=== PATIENT | male | born 1970 | race Caucasian/White ===

== ENCOUNTER → 2022-05-07 14:21 | Outpatient (CLI) | payer OTHER, SELFPAY ==
[2022-05-07 19:48] LABS: Alanine Aminotransferase 74 IU/L (<50); Albumin 4.3 g/dL (3.5-5.0); Albumin Globulin Ratio 1.3 (1.0-2.8); Alkaline Phosphatase 59 U/L (38-126); Aspartate Aminotransferase 59 IU/L (17-59); BUN Creatinine Ratio 14.4 (6-22); Bilirubin Total 1.5 mg/dL (0.2-1.3); Blood Urea Nitrogen 16 mg/dL (9-20); Calcium 9.2 mg/dL (8.4-10.2); Carbon Dioxide 30 mmol/L (22-32); Chloride 100 mmol/L (98-107); Estimated Glomerular Filt Rate > 60 mL/min (>60); Globulin 3.2 g/dL (1.7-4.1); Glucose 96 mg/dL (70-100); HEMOLYSIS < 15 (0-50); Potassium 4.3 mmol/L (3.4-5.1); Sodium 139 mmol/L (137-145); Total Protein 7.5 g/dL (6.3-8.2)
[2022-05-07 20:12] LABS: TSH w/ Reflex to FT4 2.77 uIU/mL (0.47-4.68)
[2022-05-07 20:13] LABS: Prostate Specific Antigen Scrn 0.221 ng/mL (0.1-4.0)
== END ==
PROVIDERS: PCP Family Medicine; Visit Provider Family Medicine
DX: Z12.5 Encounter for screening for malignant neoplasm of prostate (principal); E04.1 Nontoxic single thyroid nodule
CPT/HCPCS: 80053; 84443; G0103

== ENCOUNTER 2023-04-17 09:12 | Day surgery (SDC) | payer OTHER, SELFPAY ==
[2023-04-17] MEDS: LACTATED RINGERS 1,000 ML 42 ML IV (09:39)
[2023-04-17 09:43] VITALS: BP 128/72; PULSE 78; RESP 16; TEMP 36.5; O2SAT 97; BMI 23.7
--- NOTE | 2023-04-17 10:28 | P.HP_ITS ---
History of Present Illness History of Present Illness Date Patient Seen: 04/17/23 Time Patient Seen: 10:28 Chief complaint: [facility] Narrative: Marcus is a 52-year-old man who is here for colonoscopy. His last 1 was about 10 years ago. His grandfather had colon cancer. He has occasional rectal bleeding after a hard bowel [facility] Medical History (Updated 04/17/23 @ 10:29 by Miguel Wild MD) Abnormal liver function tests Chronic retention of urine Encounter for occupational therapy Family history of colon cancer Foot pain (~2020) Intermittent self-catheterization of bladder Internal hemorrhoids (~2012) Lower urinary tract symptoms Thyroid nodule (~2021) Urinary obstruction Surgical History (Updated 10/31/22 @ 13:39 by Bartolo Viveros MD) Anesthesia History of back surgery History of prostate surgery Family History Father History of kidney cancer Grandfather History of heart attack History of heart disease Grandfather Colon cancer Mother Cancer Social History marital status: number of children: 0 household members: none Smoking Status: Never smoker alcohol intake: never caffeine: Yes Type(s) of exercise: other frequency: daily Meds Home Medications and Allergies Allergies Allergy/AdvReac Type Severity Reaction Status Date / Time Penicillins Allergy Unknown Swelling Verified 04/17/23 09:41 Exam Vital Signs (past 8 hours): - 04/17/23 09:43 Temperature 97.7 F Pulse Rate 78 Respiratory Rate 16 Blood Pressure 128/72 Pulse Oximetry 97 Oxygen Delivery Method Room Air Oxygen Delivery Method Room Air Const General: healthy appearing Assessment & Plan Assessment and plan (1) Colon cancer screening: Status: Acute Plan We reviewed the risks and benefits of colonoscopy for colon cancer screening and he would like to proceed.
--- NOTE | 2023-04-17 11:22 | PM.OP.COLON ---
Operative Date/Time/Diagnoses Date of procedure: 04/17/23 Time of procedure: 11:22 Pre-op diagnosis: Colon cancer screening Post-op diagnosis: same Procedure & Clinicians Study performed: Colonoscopy Same procedure as scheduled: Yes Surgeon: Miguel Wild Procedure Notes Procedure in detail: Surgeon: Miguel Wild MD Anesthesia: Ching Gross CRNA Procedure: The patient was brought to the endoscopy suite, placed in left lateral decubitus position. The patient was connected to monitoring devices. A time-out was performed. Sedation was administered. Once the patient was adequately sedated, a digital rectal exam was performed and was normal. The scope was then inserted and advanced to the cecum where the appendiceal orifice was identified and photographed. The scope was then slowly withdrawn over greater than 6 minutes. The mucosa was thoroughly inspected. No abnormalities were seen. The scope was retroflexed in the rectum. No abnormalities were found. The scope was straightened and removed. The patient was awakened and brought to recovery. Scope withdrawal time: 7 minutes Sedation time: 11 minutes EBL: 0 Findings: Normal colon Post-procedure Recommendations: Colonoscopy in 10 years Disposition: PACU
[2023-04-17 11:25] VITALS: BP 87/61; PULSE 71; RESP 11; TEMP 36.1; O2SAT 96
[2023-04-17 11:30] VITALS: BP 84/56; PULSE 60; RESP 12; O2SAT 100
[2023-04-17 11:35] VITALS: BP 97/63; PULSE 75; RESP 14; O2SAT 100
[2023-04-17 11:45] VITALS: BP 107/73; PULSE 68; RESP 16; TEMP 36.6; O2SAT 100
[2023-04-17 11:56] VITALS: BP 122/72; PULSE 78; RESP 16; TEMP 36.8; O2SAT 98
== END 2023-04-17 11:59 | disposition home or self-care (01) ==
PROVIDERS: PCP Family Medicine; Referring Provider Surgery; Visit Provider Surgery
PROC: 0DJD8ZZ Inspection of Lower Intestinal Tract, Via Natural or Artificial Opening Endoscopic (ICD-10-PCS; CPT 45378; principal; 2023-04-17 10:15)
DX: Z12.11 Encounter for screening for malignant neoplasm of colon (principal)
CPT/HCPCS: 45378; J2704